=== PATIENT | female | born 1980 | race Caucasian/White ===

== ENCOUNTER 2017-11-15 00:08 | Emergency (ER) | payer MEDICAID, OTHER ==
[~2017-11-15] VITALS: Ht 157.5 cm; Wt 75.0 kg
[~2017-11-15 00:08] MED LIST: CLIN-80 PO; HYDR-3965 PO
[2017-11-15] MEDS ORDERED: ketorolac tromethamine 15mg/ml inj. IV ONE (00:55)
[2017-11-15 00:57] LABS: COLOR,URINE Dark Yellow (Yellow); GLUCOSE, URINE Negative (Neg); KETONES,URINE 80 mg/dl (Neg); LEUKOCYTE ESTERASE ,URINE Trace (Neg); NITRITES, URINE Negative (Neg); OCCULT BLOOD,URINE Trace (Neg); PROTEIN,URINE >=1000 mg/dl (Neg)
[2017-11-15 00:59] LABS: URINE HCG NEGATIVE (NEG)
[2017-11-15 01:02] LABS: UA COLLECTION TYPE CLN CATCH MIDSTREAM
[2017-11-15 01:03] LABS: CLARITY,URINE Slightly Cloudy (Clear)
[2017-11-15 01:05] LABS: HEMATOCRIT 43.1 % (35.0-45.0); HEMOGLOBIN 14.6 g/dl (12.0-16.0); MEAN CORPUSCULAR HEMOGLOBIN 34.6 PG (27.0-31.0); MEAN CORPUSCULAR HGB CONC 33.7 % (33.0-36.5); MEAN CORPUSCULAR VOLUME 102.4 FL (78-98); MEAN PLATELET VOLUME 8.7 FL (7.4-10.4); PLATELET COUNT 185 X10'3 (140-440); RED BLOOD COUNT 4.21 X10'6 (4.20-5.60); RED CELL DISTRIBUTION WIDTH 12.1 % (11.5-14.5); WHITE BLOOD COUNT 10.9 X10'3 (4.5-11.0)
[2017-11-15 01:05] LABS: BACTERIA,URINE FEW /HPF (Neg); MUCUS STRANDS MANY /LPF (Neg); SQUAMOUS EPITHELIAL CELL,UR FEW /LPF (FEW); WBC,URINE 0-4 /HPF (0-4)
[2017-11-15 01:11] LABS: PROTHROMBIN TIME 10.1 SECONDS (9.0-12.0)
[2017-11-15 01:17] LABS: ALANINE AMINOTRANSFERASE 123 U/L (12-78); ALBUMIN 4.3 G/DL (3.4-5.0); ALBUMIN/GLOBULIN RATIO 0.8 (1.1-1.5); ALKALINE PHOSPHATASE 93 IU/L (46-116); AMYLASE 95 U/L (25-115); ANION GAP 20 (8-16); ASPARTATE AMINO TRANSFERASE 132 U/L (10-37); BILIRUBIN,TOTAL 2.4 MG/DL (0.1-1.0); BLOOD UREA NITROGEN 14 MG/DL (7-18); BUN/CREATININE RATIO 21.5 (6.6-38.0); CALCIUM 9.6 MG/DL (8.5-10.1); CHLORIDE 98 MMOL/L (99-107); CREATININE 0.65 MG/DL (0.40-0.90); GLUCOSE 101 MG/DL (70-104); LIPASE 202 U/L (73-393); SODIUM 141 MMOL/L (135-145); TOTAL CARBON DIOXIDE 23.1 MMOL/L (24-32); TOTAL PROTEIN 9.7 G/DL (6.4-8.2); eGFR > 90 ML/MIN
[2017-11-15 01:23] LABS: POTASSIUM 2.9 MMOL/L (3.5-5.1)
[2017-11-15] MEDS ORDERED: LORazepam 2 mg/ml vial IV ONE (01:35)
[2017-11-15] MEDS ORDERED: ondansetron/PF 4mg/2ml inj IV ONE (01:35)
[2017-11-15] MEDS ORDERED: normal saline 1000ML IV soln IVB ONE (01:35)
[2017-11-15] MEDS ORDERED: potassium Cl 20 mEq SR tablet PO ONE (01:35)
[2017-11-15 01:40] LABS: TOTAL CELLS COUNTED 100
[2017-11-15 01:41] LABS: PLATELET ESTIMATE NORMAL
[2017-11-15] MEDS ORDERED: iohexol 300mg/ml 100ml inj. ONE (01:41)
[2017-11-15 01:42] LABS: ANISOCYTOSIS FEW
[2017-11-15 02:08] LABS: URINE AMPHETAMINE SCREEN POSITIVE (Neg); URINE BARBITUATE SCREEN NEGATIVE (Neg); URINE BENZODIAZEPINES SCREEN NEGATIVE (Neg); URINE CANNABINOID SCREEN POSITIVE (Neg); URINE COCAINE SCREEN NEGATIVE (Neg); URINE METHADONE SCREEN NEGATIVE (Neg); URINE OPIATE SCREEN NEGATIVE (Neg); URINE PHENCYCLIDINE SCREEN NEGATIVE (Neg)
[2017-11-15 02:41] VITALS: BP 180/134
[2017-11-15] MEDS ORDERED: ONDA8TAB6 PO (03:01)
== END 2017-11-15 03:20 | disposition home or self-care (01) ==
LOC: ER 00:08
DX: R10.9 Unspecified abdominal pain (principal); R11.2 Nausea with vomiting, unspecified; R79.89 Other specified abnormal findings of blood chemistry; Z87.442 Personal history of urinary calculi; F17.200 Nicotine dependence, unspecified, uncomplicated; Z88.0 Allergy status to penicillin; Z88.8 Allergy status to other drugs, medicaments and biological substances; Z79.899 Other long term (current) drug therapy
CPT/HCPCS: 36415; 74177; 80053; 80305; 81001; 81025; 82150; 83690; 85025; 85610; 87088; 96374; 96375; 99285; J1885; J2060; J2405; J7030; Q9967

== ENCOUNTER 2020-02-25 15:16 | Inpatient (IN) | payer MEDICAID ==
[~2020-02-25] VITALS: Ht 157.5 cm; Wt 70.5 kg
[~2020-02-25 15:16] MED LIST changes: -CLIN-80 PO; +CLIN-97 PO; +ONDA8TAB6 PO
[2020-02-25] MEDS ORDERED: normal saline 1000ML IV soln IVB ONE (16:00)
[2020-02-25] MEDS ORDERED: aspirin 81mg tab.chew PO ONE (16:10)
--- NOTE | 2020-02-25 16:12 | NUR ---
MEDICAL RECORDS REQUESTED FROM [facility]
--- NOTE | 2020-02-25 16:13 | NUR ---
TELENEURO CONSULT INITIATED
[2020-02-25] MEDS ORDERED: iohexol 350MG/ML 100ml bottle IV ONE (16:15)
[2020-02-25 16:28] LABS: BASOPHILS # (AUTO) 0.1 X10'3 (0-0.2); BASOPHILS % (AUTO) 0.9 % (0-1); EOSINOPHILS # (AUTO) 0.3 X10'3 (0-0.9); EOSINOPHILS % (AUTO) 3.8 % (0-6); HEMATOCRIT 44.7 % (35.0-45.0); HEMOGLOBIN 14.7 g/dl (12.0-16.0); LYMPHOCYTES % (AUTO) 26.2 % (21-51); MEAN CORPUSCULAR HEMOGLOBIN 31.2 PG (27.0-31.0); MEAN CORPUSCULAR HGB CONC 32.8 g/dL (33.0-36.5); MEAN CORPUSCULAR VOLUME 95.2 FL (78-98); MEAN PLATELET VOLUME 8.4 FL (7.4-10.4); MONOCYTES # (AUTO) 0.9 X10'3 (0-0.9); MONOCYTES % (AUTO) 11.2 % (2-12); NEUTROPHILS # (AUTO) 4.5 X10'3 (1.8-7.7); NEUTROPHILS % (AUTO) 57.9 % (42-75); PLATELET COUNT 463 X10'3 (140-440); RED CELL DISTRIBUTION WIDTH 14.1 % (11.5-14.5); WHITE BLOOD COUNT 7.8 X10'3 (4.5-11.0)
--- NOTE | 2020-02-25 16:40 | NUR ---
Around this time patient had a teleneuro eval done by [facility].
--- NOTE | 2020-02-25 16:50 | NUR ---
With the neuro assesment she has sensation to the right side but when I do direct pressure to the finger bed and toe bed she does not feel as much on the right side. The swallowing assessment was done by the ER nurse and she passed. A deleay in the CTA of head due to waiting on the cmp results because the first lab cooagulated.
[2020-02-25 17:04] LABS: PARTIAL THROMBOPLASTIN TIME 26 SECONDS (22-32)
[2020-02-25 17:05] LABS: ALANINE AMINOTRANSFERASE 45 U/L (12-78); ALBUMIN 2.9 G/DL (3.4-5.0); ALBUMIN/GLOBULIN RATIO 0.6 (1.1-1.5); ALKALINE PHOSPHATASE 77 IU/L (46-116); ANION GAP 8 (8-16); ASPARTATE AMINO TRANSFERASE 24 U/L (10-37); BILIRUBIN,TOTAL 0.3 MG/DL (0.1-1.0); BLOOD UREA NITROGEN 39 MG/DL (7-18); BUN/CREATININE RATIO 31.7 (6.6-38.0); CALCIUM 9.5 MG/DL (8.5-10.1); CHLORIDE 107 MMOL/L (99-107); CREATININE 1.23 MG/DL (0.40-0.90); GLUCOSE 142 MG/DL (70-104); SODIUM 140 MMOL/L (135-145); TOTAL CARBON DIOXIDE 24.6 MMOL/L (24-32); TOTAL PROTEIN 7.6 G/DL (6.4-8.2); eGFR 48 ML/MIN
[2020-02-25] MEDS ORDERED: FOLIC ACID 1MG PO (17:10)
[2020-02-25] MEDS ORDERED: SPIR25TA5 PO (17:10)
[2020-02-25] MEDS ORDERED: LISI-604 PO (17:11)
[2020-02-25] MEDS ORDERED: CARV25TA56 PO (17:11)
[2020-02-25] MEDS ORDERED: FURO20TA4 PO (17:11)
[2020-02-25 17:13] LABS: ETHANOL < 0.010 GM/DL (0.0-0.010); TROPONIN I < 0.04 NG/ML (0.0-0.05)
[2020-02-25 17:19] LABS: URINE HCG NEGATIVE (NEG)
[2020-02-25 17:24] LABS: CLARITY,URINE CLEAR (Clear); COLOR,URINE YELLOW (Yellow); GLUCOSE, URINE NEGATIVE (Neg); KETONES,URINE NEGATIVE (Neg); LEUKOCYTE ESTERASE ,URINE TRACE (Neg); NITRITES, URINE NEGATIVE (Neg); OCCULT BLOOD,URINE TRACE-INTACT (Neg); PROTEIN,URINE TRACE mg/dl (Neg); UROBILINOGEN,URINE 0.2 E.U/dL (0.2-1.0)
[2020-02-25 17:28] LABS: UA COLLECTION TYPE VOIDED
[2020-02-25 17:30] LABS: SQUAMOUS EPITHELIAL CELL,UR MODERATE /LPF (FEW)
--- NOTE | 2020-02-25 17:30 | NUR ---
Went with patient to CTA of head.
[2020-02-25 17:31] LABS: MUCUS STRANDS FEW /LPF (Neg)
[2020-02-25 17:32] LABS: BACTERIA,URINE FEW /HPF (Neg); RBC,URINE 0-2 /HPF (0-2); WBC CLUMPS,URINE FEW /HPF (NEGATIVE); WBC,URINE 0-4 /HPF (0-4)
[2020-02-25 17:36] LABS: URINE AMPHETAMINE SCREEN NEGATIVE (Neg); URINE BARBITUATE SCREEN NEGATIVE (Neg); URINE BENZODIAZEPINES SCREEN NEGATIVE (Neg); URINE CANNABINOID SCREEN NEGATIVE (Neg); URINE COCAINE SCREEN NEGATIVE (Neg); URINE METHADONE SCREEN NEGATIVE (Neg); URINE OPIATE SCREEN POSITIVE (Neg); URINE PHENCYCLIDINE SCREEN NEGATIVE (Neg)
[2020-02-25] MEDS ORDERED: diazepam inj 5 MG/ML inj. IV ONE (18:00)
[2020-02-25] MEDS ORDERED: ESCI10TA PO (18:23)
[2020-02-25] MEDS ORDERED: ondansetron/PF 4mg/2ml inj IV ONE (18:40)
[2020-02-25] MEDS ORDERED: normal saline 1000ml 1,000 ML IV SCH (19:48)
[2020-02-25 20:04] LABS: HEMOGLOBIN A1C 6.2 % (4.5-6.2)
[2020-02-25] MEDS ORDERED: diazepam inj 5 MG/ML inj. IV PRN (21:20)
[2020-02-25 22:00] VITALS: BP 137/93
[2020-02-25] MEDS: traMADol 50MG tablet PO PRN (22:29)
[2020-02-26 02:00] VITALS: BP 119/80
[2020-02-26] MEDS: traMADol 50MG tablet PO PRN ×2 (03:05→19:38)
[2020-02-26 06:00] VITALS: BP 128/85
--- NOTE | 2020-02-26 06:38 | NUR ---
REPORT GIVEN TO STAS ORTEGA.
[2020-02-26 07:52] LABS: CHOL/HDL RATIO 5.4 (0.00-4.99); CHOLESTEROL 172 MG/DL (0-200); HDL CHOLESTEROL 32 MG/DL (35-60); LDL CHOLESTEROL 120 MG/DL (50-100); TRIGLYCERIDES 118 MG/DL (20-135)
[2020-02-26] MEDS: spironolactone 25 MG tablet PO SCH (09:42)
[2020-02-26] MEDS: aspirin 325mg tablet PO SCH (09:42)
[2020-02-26] MEDS: lisinopril 5mg tablet PO SCH ×2 (09:42→19:23)
[2020-02-26] MEDS: furosemide 20MG tablet PO SCH ×2 (09:42→19:23)
[2020-02-26] MEDS: carVEDilol 12.5mg tablet PO SCH ×2 (09:43→19:23)
[2020-02-26 10:00] VITALS: BP 136/88
[2020-02-26] MEDS ORDERED: LORazepam 2 mg/ml vial IV ONE (10:20)
[2020-02-26 14:00] VITALS: BP 90/59
[2020-02-26] MEDS ORDERED: clopidogrel 75mg tablet PO SCH (15:25)
[2020-02-26] MEDS: LORazepam 0.5 MG tablet PO PRN (17:09)
[2020-02-26 18:00] VITALS: BP 104/86
--- NOTE | 2020-02-26 18:20 | NUR ---
Patient in room ORTHO 4009. I have received report from Lynn MCCLELLAND and had the opportunity to ask questions and assume patient care.
--- NOTE | 2020-02-26 18:20 | NUR ---
Report to Ericka MCCLELLAND
[2020-02-26] MEDS: heparin 10,000 units/1 ML INJ IV PRN (19:35)
[2020-02-26] MEDS: heparin 25,000 UNIT/250ml bag 250 ML IV SCH (19:38)
[2020-02-26 22:00] VITALS: BP 100/40
[2020-02-27] MEDS: traMADol 50MG tablet PO PRN ×2 (01:24→05:40)
[2020-02-27] MEDS: LORazepam 0.5 MG tablet PO PRN ×2 (01:26→13:12)
[2020-02-27 02:25] VITALS: BP 98/54
[2020-02-27] MEDS: heparin 10,000 units/1 ML INJ IV PRN (02:45)
[2020-02-27] MEDS: heparin 25,000 UNIT/250ml bag 250 ML IV SCH (02:48)
[2020-02-27 06:00] VITALS: BP 101/63
--- NOTE | 2020-02-27 06:00 | NUR ---
Patient in room ORTHO 4009. I have received report from Ericka MCCLELLAND and had the opportunity to ask questions and assume patient care.
--- NOTE | 2020-02-27 06:33 | NUR ---
Problems reprioritized. Patient report given, questions answered & plan of care reviewed with Sushma MCCLELLAND.
[2020-02-27] MEDS: spironolactone 25 MG tablet PO SCH (07:07)
[2020-02-27] MEDS: lisinopril 5mg tablet PO SCH (07:08)
[2020-02-27] MEDS: carVEDilol 12.5mg tablet PO SCH (07:08)
[2020-02-27] MEDS: furosemide 20MG tablet PO SCH (07:08)
[2020-02-27] MEDS ORDERED: atorvastatin 20mg tablet PO SCH (08:00)
[2020-02-27] MEDS: aspirin 325mg tablet PO SCH (08:00)
[2020-02-27 10:00] VITALS: BP 102/60
[2020-02-27 14:00] VITALS: BP 109/69
[2020-02-27 14:55] LABS: BASOPHILS # (AUTO) 0.1 X10'3 (0-0.2); BASOPHILS % (AUTO) 0.8 % (0-1); EOSINOPHILS # (AUTO) 0.3 X10'3 (0-0.9); EOSINOPHILS % (AUTO) 4.6 % (0-6); HEMATOCRIT 40.7 % (35.0-45.0); HEMOGLOBIN 13.3 g/dl (12.0-16.0); LYMPHOCYTES % (AUTO) 30.7 % (21-51); MEAN CORPUSCULAR HEMOGLOBIN 31.3 PG (27.0-31.0); MEAN CORPUSCULAR HGB CONC 32.6 g/dL (33.0-36.5); MEAN PLATELET VOLUME 8.3 FL (7.4-10.4); MONOCYTES # (AUTO) 1.1 X10'3 (0-0.9); MONOCYTES % (AUTO) 15.9 % (2-12); NEUTROPHILS # (AUTO) 3.2 X10'3 (1.8-7.7); PLATELET COUNT 480 X10'3 (140-440); RED BLOOD COUNT 4.24 X10'6 (4.20-5.60); RED CELL DISTRIBUTION WIDTH 13.9 % (11.5-14.5); WHITE BLOOD COUNT 6.6 X10'3 (4.5-11.0)
[2020-02-27 15:11] LABS: ALANINE AMINOTRANSFERASE 36 U/L (12-78); ALBUMIN 2.7 G/DL (3.4-5.0); ALBUMIN/GLOBULIN RATIO 0.6 (1.1-1.5); ALKALINE PHOSPHATASE 72 IU/L (46-116); ANION GAP 8 (8-16); ASPARTATE AMINO TRANSFERASE 23 U/L (10-37); BILIRUBIN,TOTAL 0.3 MG/DL (0.1-1.0); BLOOD UREA NITROGEN 28 MG/DL (7-18); BUN/CREATININE RATIO 26.2 (6.6-38.0); CALCIUM 9.1 MG/DL (8.5-10.1); CHLORIDE 105 MMOL/L (99-107); CREATININE 1.07 MG/DL (0.40-0.90); GLUCOSE 82 MG/DL (70-104); POTASSIUM 4.8 MMOL/L (3.5-5.1); SODIUM 139 MMOL/L (135-145); TOTAL CARBON DIOXIDE 26.3 MMOL/L (24-32); TOTAL PROTEIN 7.2 G/DL (6.4-8.2); eGFR 56 ML/MIN
[2020-02-27] MEDS ORDERED: ATOR20TA66 PO (15:21)
[2020-02-27] MEDS ORDERED: FURO20TA4 PO (15:21)
[2020-02-27] MEDS ORDERED: ESCI20TA PO (15:21)
[2020-02-27] MEDS ORDERED: CARV-49 PO (15:21)
[2020-02-27] MEDS ORDERED: APIX5TAB3 PO (15:34)
--- NOTE | 2020-02-27 15:45 | NUR ---
Patient stable for discharge home today. All discharge instructions given to patient and questions answered. Prescriptions called into [facility] on [address]. IV discontinued with cannula intact. Stroke education provided.
[2020-02-27] MEDS ORDERED: apixaban 5mg tablet PO SCH (20:00)
== END 2020-02-27 16:45 | disposition home or self-care (01) | DRG 45 ==
LOC: ER 15:17 → ED HOLD 19:48 → ORTHO 4S 21:20
PROVIDERS: ADMIT Family Medicine; ATTEND Internal Medicine
PROC: B3251ZZ Computerized Tomography (CT Scan) of Bilateral Common Carotid Arteries using Low Osmolar Contrast (ICD-10-PCS; principal; 2020-02-25)
PROC: B32G1ZZ Computerized Tomography (CT Scan) of Bilateral Vertebral Arteries using Low Osmolar Contrast (ICD-10-PCS; 2020-02-25)
PROC: B32R1ZZ Computerized Tomography (CT Scan) of Intracranial Arteries using Low Osmolar Contrast (ICD-10-PCS; 2020-02-25)
PROC: B3281ZZ Computerized Tomography (CT Scan) of Bilateral Internal Carotid Arteries using Low Osmolar Contrast (ICD-10-PCS; 2020-02-25)
DX: I63.9 Cerebral infarction, unspecified (principal); I11.0 Hypertensive heart disease with heart failure; I50.22 Chronic systolic (congestive) heart failure; F17.200 Nicotine dependence, unspecified, uncomplicated; F41.8 Other specified anxiety disorders; Z87.442 Personal history of urinary calculi; Z88.0 Allergy status to penicillin; Z88.8 Allergy status to other drugs, medicaments and biological substances; Z79.899 Other long term (current) drug therapy
CPT/HCPCS: 36415; 70450; 70496; 70498; 70544; 70551; 71045; 80053; 80061; 80305; 80320; 81001; 81025; 82948; 83036; 83605; 83880; 84484; 85025; 85610; 85730; 87040; 87081; 87088; 93005; 93306; 93880; 97110; 97161; 97530; 99291; G0378; J1644; J2060; J2405; J3360; J7030; Q9967

== ENCOUNTER 2020-02-29 04:47 | Emergency (ER) | payer MEDICAID ==
[~2020-02-29] VITALS: Ht 157.5 cm; Wt 70.9 kg
[~2020-02-29 04:47] MED LIST changes: +APIX5TAB3 PO; +ATOR20TA66 PO; +CARV-49 PO; +CARV25TA56 PO; +ESCI10TA PO; +ESCI20TA PO; +FOLIC ACID 1MG PO; +FURO20TA4 PO; +LISI-604 PO; +SPIR25TA5 PO
[2020-02-29] MEDS ORDERED: normal saline 1000ML IV soln IVB ONE (04:50)
[2020-02-29] MEDS ORDERED: ondansetron/PF 4mg/2ml inj IV ONE (04:50)
[2020-02-29] MEDS ORDERED: normal saline 1000ml 1,000 ML IV ONE (05:35)
[2020-02-29 05:53] LABS: URINE HCG NEGATIVE (NEG)
[2020-02-29 05:54] LABS: BASOPHILS # (AUTO) 0.1 X10'3 (0-0.2); BASOPHILS % (AUTO) 0.8 % (0-1); EOSINOPHILS # (AUTO) 0.4 X10'3 (0-0.9); EOSINOPHILS % (AUTO) 4.2 % (0-6); HEMATOCRIT 43.2 % (35.0-45.0); HEMOGLOBIN 14.2 g/dl (12.0-16.0); LYMPHOCYTES # (AUTO) 2.8 X10'3 (1.1-4.8); LYMPHOCYTES % (AUTO) 30.4 % (21-51); MEAN CORPUSCULAR HEMOGLOBIN 31.4 PG (27.0-31.0); MEAN CORPUSCULAR VOLUME 95.1 FL (78-98); MEAN PLATELET VOLUME 8.4 FL (7.4-10.4); MONOCYTES # (AUTO) 1.1 X10'3 (0-0.9); MONOCYTES % (AUTO) 11.5 % (2-12); NEUTROPHILS % (AUTO) 53.1 % (42-75); PLATELET COUNT 531 X10'3 (140-440); RED BLOOD COUNT 4.54 X10'6 (4.20-5.60); RED CELL DISTRIBUTION WIDTH 13.9 % (11.5-14.5); WHITE BLOOD COUNT 9.4 X10'3 (4.5-11.0)
[2020-02-29 06:04] LABS: CLARITY,URINE SLIGHTLY CLOUDY (Clear); COLOR,URINE YELLOW (Yellow); GLUCOSE, URINE NEGATIVE (Neg); KETONES,URINE NEGATIVE (Neg); LEUKOCYTE ESTERASE ,URINE NEGATIVE (Neg); NITRITES, URINE NEGATIVE (Neg); OCCULT BLOOD,URINE SMALL (Neg); PROTEIN,URINE NEGATIVE (Neg); UROBILINOGEN,URINE 0.2 E.U/dL (0.2-1.0)
[2020-02-29 06:06] LABS: UA COLLECTION TYPE CLN CATCH MIDSTREAM
[2020-02-29 06:13] LABS: BACTERIA,URINE NONE SEEN /HPF (Neg); MUCUS STRANDS NONE SEEN /LPF (Neg); RBC,URINE 0-2 /HPF (0-2); WBC,URINE 0-4 /HPF (0-4)
[2020-02-29 06:14] LABS: SQUAMOUS EPITHELIAL CELL,UR MODERATE /LPF (FEW)
[2020-02-29 06:17] LABS: ALANINE AMINOTRANSFERASE 37 U/L (12-78); ALBUMIN 3.3 G/DL (3.4-5.0); ALBUMIN/GLOBULIN RATIO 0.6 (1.1-1.5); ALKALINE PHOSPHATASE 89 IU/L (46-116); ANION GAP 12 (8-16); ASPARTATE AMINO TRANSFERASE 33 U/L (10-37); BILIRUBIN,TOTAL 0.4 MG/DL (0.1-1.0); BLOOD UREA NITROGEN 28 MG/DL (7-18); BUN/CREATININE RATIO 23.3 (6.6-38.0); CALCIUM 9.7 MG/DL (8.5-10.1); CHLORIDE 104 MMOL/L (99-107); GLUCOSE 90 MG/DL (70-104); LIPASE 565 U/L (73-393); POTASSIUM 4.1 MMOL/L (3.5-5.1); SODIUM 141 MMOL/L (135-145); TOTAL CARBON DIOXIDE 25.4 MMOL/L (24-32); TOTAL PROTEIN 8.7 G/DL (6.4-8.2); eGFR 49 ML/MIN
[2020-02-29 06:26] LABS: URINE AMPHETAMINE SCREEN NEGATIVE (Neg); URINE BARBITUATE SCREEN NEGATIVE (Neg); URINE BENZODIAZEPINES SCREEN NEGATIVE (Neg); URINE CANNABINOID SCREEN POSITIVE (Neg); URINE COCAINE SCREEN NEGATIVE (Neg); URINE METHADONE SCREEN NEGATIVE (Neg); URINE OPIATE SCREEN NEGATIVE (Neg); URINE PHENCYCLIDINE SCREEN NEGATIVE (Neg)
--- NOTE | 2020-02-29 06:45 | NUR ---
Pt states that she is feeling anxious, and her legs are cramping. MD notified.
[2020-02-29 06:53] VITALS: BP 136/83
--- NOTE | 2020-02-29 07:15 | NUR ---
Pt stating that her leg cramping is worsening, feeling increasingly anxious. MD notified, no orders obtained.
[2020-02-29] MEDS ORDERED: LORazepam 1 MG tablet PO ONE (07:35)
--- NOTE | 2020-02-29 07:40 | NUR ---
Pt still requesting something for her anxiety and leg cramping. MD notified, will await orders.
== END 2020-02-29 08:11 | disposition home or self-care (01) ==
LOC: ER 04:48
DX: F41.9 Anxiety disorder, unspecified (principal); R42 Dizziness and giddiness; R06.02 Shortness of breath; M54.5 Low back pain; Z87.01 Personal history of pneumonia (recurrent); Z87.442 Personal history of urinary calculi; Z98.890 Other specified postprocedural states; Z72.89 Other problems related to lifestyle; Z88.0 Allergy status to penicillin; Z88.8 Allergy status to other drugs, medicaments and biological substances; Z79.899 Other long term (current) drug therapy
CPT/HCPCS: 36415; 80053; 80305; 81001; 81025; 83690; 85025; 96361; 96374; 99283; J2405; J7030